=== PATIENT | female | born 1940 | race Caucasian/White ===

== ENCOUNTER 2016-11-30 21:06 | Emergency (ER) | payer MEDICARE, BC ==
[2016-11-30 23:29] VITALS: BP 130/90
--- NOTE | 2016-12-01 00:36 | EDM.PDOC ---
ED HPI GENERAL MEDICAL PROBLEM - General Chief Complaint: Lower Extremity Injury/Pain Stated Complaint: INFECTED TOE Time Seen by Provider: 12/01/16 00:05 Source of Information: Reports: Patient History Limitations: Reports: No Limitations - History of Present Illness INITIAL COMMENTS - FREE TEXT/NARRATIVE: 76-year-old female with a slightly ingrown large toenail on the right foot, however over the past 2 days has become more reddened and swollen, the erythema extends to the base of the toe and across the forefoot. No fevers or chills. She called the nurse hotline and was told to come in to be checked. 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 Denies: Fever/Chills, Loss of Appetite, Malaise - Related Data Allergies Allergy/AdvReac Type Severity Reaction Status Date / Time No Known Allergies Allergy Verified 12/01/16 00:08 Home Meds: Home Meds Metoprolol Tartrate [Lopressor] 1 tab PO DAILY 12/01/16 [History] Past Medical History Musculoskeletal History: Reports: Back Pain, Chronic Social & Family History - Tobacco Use Smoking Status *Q: Never Smoker Review of Systems - Review of Systems Review Of Systems: See Below Constitutional: Denies: Fever Eyes: Reports: No Symptoms Respiratory: Reports: No Symptoms Musculoskeletal: Reports: Back Pain (Chronic and stable) Neurological: Reports: Other (She does have neuropathy of the feet) ED EXAM, GENERAL - Physical Exam Exam: See Below Exam Limited By: No Limitations General Appearance: Alert, No Apparent Distress Respiratory/Chest: No Respiratory Distress Extremities: Other (Exam is otherwise limited to the lower extremities. She has redness around the large toe of the right foot extending to the base of the toe and across the top of the foot. There is tenderness to palpation over the medial aspect of the toenail) Course - Vital Signs Last Recorded V/S: Last Vital Signs Temp 97.3 F 12/01/16 00:14 Pulse 63 12/01/16 00:14 Resp 20 12/01/16 00:14 BP 130/90 12/01/16 00:14 Pulse Ox 96 12/01/16 00:14 - Re-Assessments/Exams Free Text/Narrative Re-Assessment/Exam: 12/01/16 00:35 Patient has an ingrown large toenail that appears to have resulted in some foot cellulitis. She'll be placed on Augmentin 875 twice daily for 10 full days if needed, but should take the antibiotic for at least 5. She can recheck at any time if worsening despite treatment Departure - Departure Time of Disposition: 00:40 Disposition: Home, Self-Care 01 Condition: Good Clinical Impression: Cellulitis of foot - Discharge Information Instructions: Diabetes and Foot Care, Cellulitis, Adult Referrals: PCP,None [Primary Care Provider] - Forms: ED Department Discharge Care Plan Goals: Take antibiotic twice daily for at least 5 days, continue with warmth to the foot and increase activity as tolerated. Recheck in 3-4 days if not significant improvement or return anytime sooner if worsening or concerns.
== END 2016-12-01 00:41 | disposition home or self-care (01) ==
LOC: JP.ED 21:06
DX: L03.115 Cellulitis of right lower limb (principal); Z79.899 Other long term (current) drug therapy
CPT/HCPCS: 99283